=== PATIENT | male | born 1950 | race African-American/Black ===

== ENCOUNTER 2023-05-30 18:14 | Emergency (ER) | payer MEDICARE, MEDICAID ==
[~2023-05-30] VITALS: Ht 182.9 cm; Wt 84.0 kg
[~2023-05-30 18:14] MED LIST: AMLO-257 PO; BUSP15 PO; CELE50CA PO; CLON-598 PO; HYDR1TAB4 PO
[2023-05-30] MEDS ORDERED: HYDR25TA2 PO (18:19)
[2023-05-30] MEDS ORDERED: AMLO2.5T96 PO (18:20)
[2023-05-30 18:21] VITALS: TEMP 98.3
[2023-05-30] MEDS: ACETAMINOPHEN 500 MG TABLET PO ONE (18:59)
[2023-05-30 19:54] VITALS: BP 156/94; PULSE 86; RESP 18
== END 2023-05-30 20:51 | disposition still patient (30) ==
LOC: EMS 18:15
DX: I10 Essential (primary) hypertension (principal); F41.9 Anxiety disorder, unspecified; F32.A Depression, unspecified; Z86.73 Personal history of transient ischemic attack (TIA), and cerebral infarction without residual deficits
CPT/HCPCS: 70450; 71045; 93005; 99285

== ENCOUNTER 2023-07-21 12:44 | Inpatient (IN) | payer MEDICARE, MEDICAID ==
[~2023-07-21] VITALS: Ht 170.2 cm; Wt 82.5 kg
[~2023-07-21 12:44] MED LIST changes: -AMLO-257 PO; +AMLO2.5T96 PO; -BUSP15 PO; -CELE50CA PO; +CEPH-558 PO; -CLON-598 PO; -HYDR1TAB4 PO; +HYDR25TA2 PO; +PRED-554 PO; +TRAM50TA5 PO
[2023-07-21 13:24] LABS: BASOPHILS % (AUTO) 0.2 % (0.0-2.0); EOSINOPHILS % (AUTO) 0.1 % (1.0-6.0); HEMATOCRIT 37.3 % (41-53); HEMOGLOBIN 11.9 g/dL (13.5-17.5); LYMPHOCYTES # (AUTO) 0.9 K/uL (1.0-4.8); LYMPHOCYTES % (AUTO) 8.3 % (22.0-44.0); MEAN CORPUSCULAR HEMOGLOBIN 29.4 pg (26.0-34.0); MEAN CORPUSCULAR VOLUME 92 fL (80-100); MONOCYTES # (AUTO) 0.6 K/uL (0.1-1.0); MONOCYTES % (AUTO) 6.2 % (2.0-9.0); NEUTROPHILS # (AUTO) 8.9 K/uL (1.8-7.7); PLATELET COUNT (AUTO) 368 K/uL (150-450); RED BLOOD CELL COUNT(AUTO) 4.06 MIL/uL (4.50-5.90); RED CELL DISTRIBUTION WIDTH 15.4 % (11.5-14.5); WHITE BLOOD COUNT (AUTO) 10.4 K/uL (4.5-11.0)
[2023-07-21 13:27] LABS: NEUTROPHILS % (AUTO) 85.2 % (40.0-70.0)
[2023-07-21 13:48] LABS: ALBUMIN 3.2 g/dL (3.4-5.0); BILIRUBIN,TOTAL 0.4 mg/dL (0.1-1.0); CREATININE 2.36 mg/dL (0.60-1.30); POTASSIUM 5.4 mmol/L (3.5-5.1); TOTAL PROTEIN, SERUM 8.3 g/dL (6.4-8.2)
[2023-07-21 13:49] LABS: TROPONIN I-HIGH SENSITIVITY 12 ng/L (<76)
[2023-07-21] MEDS: ASPIRIN 325 MG TABLET PO ONE (14:38)
[2023-07-21] MEDS: LABETALOL HCL 5 MG/ML 20 ML VIAL IVP ONE ×2 (14:39→15:54)
[2023-07-21] MEDS: FUROSEMIDE 20 MG TABLET PO ONE (14:39)
[2023-07-21] MEDS ORDERED: DEXTROSE 50%-WATER 25 GM/50 ML SYRINGE IVP PRN (15:30)
[2023-07-21] MEDS ORDERED: HydrALAZINE HCL 20 MG/ML VIAL IVP PRN (15:30)
[2023-07-21] MEDS: MORPHINE SULFATE 4 MG/ML SYRINGE IVP ONE (15:32)
[2023-07-21] MEDS: KETOROLAC TROMETHAMINE 30 MG/ML VIAL IVP ONE (15:34)
[2023-07-21] MEDS: INSULIN REGULAR, HUMAN 100 UNITS/ML IVP ONE (15:37)
[2023-07-21] MEDS: ONDANSETRON HCL 4 MG/2 ML VIAL IVP ONE (15:43)
[2023-07-21] MEDS: NIFEdipine 30 MG ER TABLET PO SCH (15:45)
[2023-07-21] MEDS: SODIUM CHLORIDE 0.9% 1,000 ML IV ONE (15:55)
[2023-07-21] MEDS ORDERED: ONDANSETRON HCL 4 MG/2 ML VIAL IVP PRN (16:00)
[2023-07-21] MEDS ORDERED: MAGNESIUM HYDROXIDE SUSPENSION 30 ML UDCUP PO PRN (16:00)
[2023-07-21] MEDS ORDERED: BISACODYL 10 MG RECTAL RECTAL SUPPOSITORY PR PRN (16:00)
[2023-07-21 16:21] LABS: GLUCOMETER DEV NAME(LOC) ERT.5; GLUCOSE,POINT OF CARE 494 MG/DL (70-110)
[2023-07-21 16:50] LABS: TROPONIN I-HIGH SENSITIVITY 14 ng/L (<76)
[2023-07-21] MEDS: HEPARIN SODIUM,PORCINE 5,000 UNITS/ML VIAL SQ SCH (17:46)
[2023-07-21 18:21] LABS: TROPONIN I-HIGH SENSITIVITY 15 ng/L (<76)
[2023-07-21] MEDS: HydrALAZINE HCL 25 MG TABLET PO SCH (19:14)
[2023-07-21] MEDS: INSULIN GLARGINE,HUM.REC.ANLOG 100 UNITS/ML SQ ONE (19:55)
[2023-07-21 20:18] LABS: COVID AG,FIA SOURCE NASAL SWAB
[2023-07-21 20:43] LABS: SARS-COV2 (COVID) ANTIGEN,FIA Negative (Negative)
[2023-07-21 21:30] VITALS: BP 133/74; PULSE 82; RESP 18; TEMP 98.6
[2023-07-21] MEDS: METOPROLOL TARTRATE 25 MG TABLET PO SCH (21:45)
[2023-07-21] MEDS: ACETAMINOPHEN 325 MG TABLET PO PRN (21:59)
[2023-07-22] VITALS (8 sets, daily range): BP systolic 98–149; BP diastolic 54–77; PULSE 72–92; RESP 16–19; TEMP 97.5–100.2; O2SAT 100
[2023-07-22] MEDS: INSULIN LISPRO 100 UNITS/ML SQ ONE (05:48)
[2023-07-22 06:26] LABS: GLUCOMETER DEV NAME(LOC) 5N.1D; GLUCOSE,POINT OF CARE 503 MG/DL (70-110)
[2023-07-22 07:14] LABS: BASOPHILS % (AUTO) 0.4 % (0.0-2.0); EOSINOPHILS % (AUTO) 1.1 % (1.0-6.0); HEMATOCRIT 28.4 % (41-53); HEMOGLOBIN 9.4 g/dL (13.5-17.5); LYMPHOCYTES # (AUTO) 2.2 K/uL (1.0-4.8); LYMPHOCYTES % (AUTO) 28.2 % (22.0-44.0); MEAN CORPUSCULAR HEMOGLOBIN 30.2 pg (26.0-34.0); MEAN CORPUSCULAR HGB CONC 33.2 G/dL (31.0-37.0); MEAN CORPUSCULAR VOLUME 91 fL (80-100); MONOCYTES # (AUTO) 0.7 K/uL (0.1-1.0); MONOCYTES % (AUTO) 8.7 % (2.0-9.0); NEUTROPHILS # (AUTO) 4.8 K/uL (1.8-7.7); NEUTROPHILS % (AUTO) 61.6 % (40.0-70.0); PLATELET COUNT (AUTO) 258 K/uL (150-450); RED BLOOD CELL COUNT(AUTO) 3.13 MIL/uL (4.50-5.90); RED CELL DISTRIBUTION WIDTH 14.7 % (11.5-14.5); WHITE BLOOD COUNT (AUTO) 7.8 K/uL (4.5-11.0)
[2023-07-22 08:08] LABS: ALBUMIN 2.2 g/dL (3.4-5.0); BILIRUBIN,TOTAL 0.2 mg/dL (0.1-1.0); CALCIUM, TOTAL 7.5 mg/dL (8.8-10.5); CHOL/HDL RATIO 3.8 (4.2-7.3); CREATININE 3.01 mg/dL (0.60-1.30); POTASSIUM 4.4 mmol/L (3.5-5.1); TOTAL PROTEIN, SERUM 6.1 g/dL (6.4-8.2)
[2023-07-22] MEDS: ASPIRIN 81 MG CHEWABLE TABLET PO SCH (08:21)
[2023-07-22] MEDS: IPRATROPIUM BROMIDE 0.5 MG/2.5 ML NEB SOLUTION NEB PRN (08:39)
[2023-07-22] MEDS: ALBUTEROL SULFATE 2.5 MG/0.5 ML NEB SOLUTION NEB PRN (08:39)
[2023-07-22 08:53] LABS: THYROID STIMULATING HORMONE 1.22 uIU/mL (0.36-3.74)
[2023-07-22] MEDS ORDERED: HYDROCODONE/ACETAMINOPHEN 5-325 MG TABLET PO PRN (12:15)
[2023-07-22] MEDS: INSULIN GLARGINE,HUM.REC.ANLOG 100 UNITS/ML SQ SCH (12:31)
[2023-07-22] MEDS: INSULIN LISPRO 100 UNITS/ML SQ PRN (12:33)
[2023-07-22] MEDS: LIDOCAINE 5% TRANSDERMAL PATCH TD SCH (13:50)
[2023-07-22] MEDS ORDERED: INSULIN GLARGINE,HUM.REC.ANLOG 100 UNITS/ML SQ SCH (15:30)
[2023-07-22] MEDS: SODIUM CHLORIDE 0.9% 1,000 ML IV ONE (17:11)
[2023-07-22 17:30] LABS: GLUCOMETER DEV NAME(LOC) 5S.2C; GLUCOSE,POINT OF CARE 366 MG/DL (70-110)
[2023-07-22] MEDS ORDERED: ATOR40TA71 PO (17:45)
[2023-07-22] MEDS ORDERED: TAMS0.4C94 PO (17:45)
[2023-07-22] MEDS ORDERED: METF-81 PO (17:45)
[2023-07-22] MEDS ORDERED: GABA-1181 PO (17:45)
[2023-07-22] MEDS ORDERED: ASPI-1198 PO (17:45)
[2023-07-22] MEDS: ATORVASTATIN CALCIUM 40 MG TABLET PO SCH (20:56)
[2023-07-22] MEDS: TAMSULOSIN HCL 0.4 MG CAPSULE PO SCH (20:56)
[2023-07-22] MEDS: -LIDODERM PATCH NOTE- MISC SCH (20:59)
[2023-07-22 21:25] LABS: GLUCOMETER DEV NAME(LOC) 5N.1D; GLUCOSE,POINT OF CARE 322 MG/DL (70-110)
[2023-07-22 22:46] LABS: GLUCOMETER DEV NAME(LOC) 5N.2C; GLUCOSE,POINT OF CARE 193 MG/DL (70-110)
[2023-07-23 00:10] VITALS: BP 118/55; PULSE 76; RESP 16; TEMP 98.8
[2023-07-23 05:19] VITALS: BP 128/65; PULSE 76; RESP 16; TEMP 98
[2023-07-23 06:05] LABS: GLUCOMETER DEV NAME(LOC) 5S.2C; GLUCOSE,POINT OF CARE 77 MG/DL (70-110)
[2023-07-23 06:52] LABS: BASOPHILS % (AUTO) 0.3 % (0.0-2.0); EOSINOPHILS % (AUTO) 1.7 % (1.0-6.0); HEMATOCRIT 28.9 % (41-53); HEMOGLOBIN 9.8 g/dL (13.5-17.5); LYMPHOCYTES # (AUTO) 2.5 K/uL (1.0-4.8); LYMPHOCYTES % (AUTO) 29.1 % (22.0-44.0); MEAN CORPUSCULAR HEMOGLOBIN 30.2 pg (26.0-34.0); MEAN CORPUSCULAR HGB CONC 33.7 G/dL (31.0-37.0); MEAN CORPUSCULAR VOLUME 90 fL (80-100); MONOCYTES # (AUTO) 0.7 K/uL (0.1-1.0); MONOCYTES % (AUTO) 8.4 % (2.0-9.0); NEUTROPHILS # (AUTO) 5.2 K/uL (1.8-7.7); NEUTROPHILS % (AUTO) 60.5 % (40.0-70.0); PLATELET COUNT (AUTO) 278 K/uL (150-450); RED BLOOD CELL COUNT(AUTO) 3.23 MIL/uL (4.50-5.90); RED CELL DISTRIBUTION WIDTH 14.9 % (11.5-14.5); WHITE BLOOD COUNT (AUTO) 8.6 K/uL (4.5-11.0)
[2023-07-23 07:25] LABS: ALBUMIN 2.3 g/dL (3.4-5.0); BILIRUBIN,TOTAL 0.2 mg/dL (0.1-1.0); CALCIUM, TOTAL 7.7 mg/dL (8.8-10.5); CREATININE 4.08 mg/dL (0.60-1.30); POTASSIUM 4.3 mmol/L (3.5-5.1)
[2023-07-23 08:00] VITALS: BP 139/65; PULSE 90; RESP 20; TEMP 98.4
[2023-07-23] MEDS ORDERED: CARISOPRODOL 350 MG TABLET PO PRN (12:00)
[2023-07-23 13:11] LABS: GLUCOMETER DEV NAME(LOC) 5N.2C; GLUCOSE,POINT OF CARE 203 MG/DL (70-110)
[2023-07-23] MEDS: OxyCODONE HCL/ACETAMINOPHEN 10-325 MG TABLET PO PRN (13:28)
[2023-07-23 16:00] VITALS: BP 119/67; PULSE 79; RESP 18; TEMP 99.3
[2023-07-23 17:05] LABS: GLUCOMETER DEV NAME(LOC) 5N.1D; GLUCOSE,POINT OF CARE 240 MG/DL (70-110)
[2023-07-23 19:36] LABS: APPEARANCE,URINE CLEAR (CLEAR); BILIRUBIN,URINE NEGATIVE (NEGATIVE); COLOR,URINE LIGHT YELLOW (YELLOW); GLUCOSE, URINE (UA) >=1000 mg/dL (NEGATIVE); KETONES,URINE NEGATIVE (NEGATIVE); LEUKOCYTE ESTERASE ,URINE NEGATIVE (NEGATIVE); NITRATE,URINE NEGATIVE (NEGATIVE); OCCULT BLOOD,URINE NEGATIVE (NEGATIVE); PROTEIN,URINE NEGATIVE (NEGATIVE); SPECIFIC GRAVITIY, URINE 1.012 (1.003-1.030); UROBILINOGEN,URINE <=1.0 mg/dL (<=1.0)
[2023-07-23 20:01] LABS: BACTERIA,URINE None Seen /HPF (None Seen); RBC,URINE 0-2 /HPF (0-2); SQUAMOUS EPITHELIAL CELL,UR Rare /LPF (None Seen); WBC,URINE 0-2 /HPF (0-5)
[2023-07-23 20:51] VITALS: BP 141/78; PULSE 95; RESP 18; TEMP 98.1
[2023-07-23] MEDS: TAMSULOSIN HCL 0.4 MG CAPSULE PO SCH (20:56)
[2023-07-23 23:04] VITALS: BP 115/62; PULSE 87; RESP 18; TEMP 98.2
[2023-07-24 03:47] VITALS: BP 125/69; PULSE 91; RESP 18; TEMP 98.4
[2023-07-24 06:50] LABS: BASOPHILS % (AUTO) 0.3 % (0.0-2.0); EOSINOPHILS % (AUTO) 3.2 % (1.0-6.0); HEMATOCRIT 28.3 % (41-53); HEMOGLOBIN 9.4 g/dL (13.5-17.5); LYMPHOCYTES # (AUTO) 2.2 K/uL (1.0-4.8); LYMPHOCYTES % (AUTO) 25.2 % (22.0-44.0); MEAN CORPUSCULAR HEMOGLOBIN 29.8 pg (26.0-34.0); MEAN CORPUSCULAR HGB CONC 33.3 G/dL (31.0-37.0); MEAN CORPUSCULAR VOLUME 89 fL (80-100); MONOCYTES # (AUTO) 0.9 K/uL (0.1-1.0); MONOCYTES % (AUTO) 10.8 % (2.0-9.0); NEUTROPHILS # (AUTO) 5.3 K/uL (1.8-7.7); NEUTROPHILS % (AUTO) 60.5 % (40.0-70.0); PLATELET COUNT (AUTO) 268 K/uL (150-450); RED BLOOD CELL COUNT(AUTO) 3.17 MIL/uL (4.50-5.90); RED CELL DISTRIBUTION WIDTH 14.6 % (11.5-14.5); WHITE BLOOD COUNT (AUTO) 8.7 K/uL (4.5-11.0)
[2023-07-24 06:59] LABS: CALCIUM, TOTAL 7.8 mg/dL (8.8-10.5); CREATININE 1.5 mg/dL (0.60-1.30)
[2023-07-24 08:13] VITALS: BP 103/53; PULSE 91; RESP 20; TEMP 98
[2023-07-24 08:46] LABS: ALCOHOL, URINE DRUG SCREEN NEGATIVE (NEGATIVE); AMPHET/METH SCREEN,URINE NEGATIVE (NEGATIVE); BARBITURATE SCREEN, URINE NEGATIVE (NEGATIVE); BENZODIAZEPINES SCREEN,URINE NEGATIVE (NEGATIVE); CANNABINOID SCREEN,URINE NEGATIVE (NEGATIVE); COCAINE SCREEN,URINE NEGATIVE (NEGATIVE); METHADONE SCREEN, URINE NEGATIVE (NEGATIVE); OPIATE SCREEN,URINE POSITIVE (NEGATIVE); PHENCYCLIDINE SCREEN,URINE NEGATIVE (NEGATIVE); SODIUM,URINE RANDOM 42 mmol/l (20-110)
[2023-07-24 11:35] VITALS: BP 124/62; PULSE 82; RESP 20; TEMP 98.3
[2023-07-24 11:51] LABS: GLUCOMETER DEV NAME(LOC) 5N.2C; GLUCOSE,POINT OF CARE 129 MG/DL (70-110)
[2023-07-24 11:51] LABS: GLUCOMETER DEV NAME(LOC) 5N.1D; GLUCOSE,POINT OF CARE 178 MG/DL (70-110)
[2023-07-24 17:00] VITALS: BP 112/56; PULSE 98; RESP 20; TEMP 98.4
[2023-07-24 17:00] LABS: GLUCOMETER DEV NAME(LOC) 5S.1B; GLUCOSE,POINT OF CARE 249 MG/DL (70-110)
[2023-07-24 19:50] VITALS: BP 122/51; PULSE 103; RESP 20; TEMP 99.2
[2023-07-25 00:14] VITALS: BP 102/51; PULSE 103; RESP 22; TEMP 99.2
[2023-07-25 00:15] VITALS: BP 102/51; PULSE 103; RESP 20; TEMP 99.2
[2023-07-25 00:41] VITALS: BP 116/57; PULSE 83; RESP 20; TEMP 99.4
[2023-07-25 04:39] VITALS: BP 150/72; PULSE 96; RESP 20; TEMP 98.8
[2023-07-25 06:01] LABS: GLUCOMETER DEV NAME(LOC) 5N.1D; GLUCOSE,POINT OF CARE 302 MG/DL (70-110)
[2023-07-25 08:00] VITALS: BP 121/83; PULSE 19; RESP 19; TEMP 98.4
[2023-07-25 08:06] LABS: BASOPHILS % (AUTO) 0.6 % (0.0-2.0); EOSINOPHILS % (AUTO) 3.3 % (1.0-6.0); HEMATOCRIT 28.3 % (41-53); HEMOGLOBIN 9.4 g/dL (13.5-17.5); LYMPHOCYTES # (AUTO) 1.9 K/uL (1.0-4.8); LYMPHOCYTES % (AUTO) 21.4 % (22.0-44.0); MEAN CORPUSCULAR HEMOGLOBIN 29.9 pg (26.0-34.0); MEAN CORPUSCULAR HGB CONC 33.3 G/dL (31.0-37.0); MEAN CORPUSCULAR VOLUME 90 fL (80-100); MONOCYTES % (AUTO) 11.5 % (2.0-9.0); NEUTROPHILS # (AUTO) 5.7 K/uL (1.8-7.7); NEUTROPHILS % (AUTO) 63.2 % (40.0-70.0); PLATELET COUNT (AUTO) 254 K/uL (150-450); RED BLOOD CELL COUNT(AUTO) 3.15 MIL/uL (4.50-5.90); RED CELL DISTRIBUTION WIDTH 15.3 % (11.5-14.5)
[2023-07-25 08:25] LABS: ANION GAP 10 mmol/L (8-16); CALCIUM, TOTAL 7.8 mg/dL (8.8-10.5); CARBON DIOXIDE 23 mmol/L (22-29); CHLORIDE 105 mmol/L (98-107); CREATININE 1.02 mg/dL (0.60-1.30); FERRITIN 280 ng/mL (26-388); GLOMERULAR FILTR. RATE CALC > 60 mL/min (>60); GLUCOSE,RANDOM 274 mg/dL (70-110); POTASSIUM 4.6 mmol/L (3.5-5.1); SODIUM SERUM 138 mmol/L (136-145); UREA NITROGEN, BLOOD 31 mg/dL (7-18)
[2023-07-25 08:31] LABS: % IRON SATURATION 15.6 % (30-44)
[2023-07-25 14:21] LABS: GLUCOMETER DEV NAME(LOC) 5N.2C; GLUCOSE,POINT OF CARE 302 MG/DL (70-110)
[2023-07-25 14:21] LABS: GLUCOMETER DEV NAME(LOC) 5S.1B; GLUCOSE,POINT OF CARE 216 MG/DL (70-110)
== END 2023-07-25 11:00 | DRG 199 ==
LOC: EMS 12:44 → 5S 20:05
PROVIDERS: ADMIT Internal Medicine; ATTEND Internal Medicine
DX: I16.0 Hypertensive urgency (principal); N17.9 Acute kidney failure, unspecified; D63.1 Anemia in chronic kidney disease; E11.65 Type 2 diabetes mellitus with hyperglycemia; E11.22 Type 2 diabetes mellitus with diabetic chronic kidney disease; E87.5 Hyperkalemia; N18.9 Chronic kidney disease, unspecified; I12.9 Hypertensive chronic kidney disease with stage 1 through stage 4 chronic kidney disease, or unspecified chronic kidney disease; Z20.822 Contact with and (suspected) exposure to COVID-19; N40.1 Benign prostatic hyperplasia with lower urinary tract symptoms; E61.1 Iron deficiency; G89.4 Chronic pain syndrome; N13.30 Unspecified hydronephrosis; F11.20 Opioid dependence, uncomplicated; F32.A Depression, unspecified; F41.9 Anxiety disorder, unspecified; R33.8 Other retention of urine; R79.89 Other specified abnormal findings of blood chemistry; Z91.148 Patient's other noncompliance with medication regimen for other reason; Z79.899 Other long term (current) drug therapy; Z86.73 Personal history of transient ischemic attack (TIA), and cerebral infarction without residual deficits; Z79.82 Long term (current) use of aspirin; Z79.4 Long term (current) use of insulin; Z91.018 Allergy to other foods
CPT/HCPCS: 71045; 76770; 80048; 80053; 80061; 80307; 81001; 82570; 82728; 82962; 83036; 83540; 83550; 83690; 83880; 84300; 84443; 84484; 85025; 93005; 93306; 94640; 97162; 99291; G0480; J0360; J1644; J1815; J1885; J2270; J2405; J3490; J7030; 36415-L1; 36415-TC; J7613

== ENCOUNTER 2023-08-05 21:27 | Emergency (ER) | payer MEDICARE, MEDICAID ==
[~2023-08-05] VITALS: Ht 182.9 cm; Wt 77.3 kg
[~2023-08-05 21:27] MED LIST changes: +ASPI-1198 PO; +ATOR40TA71 PO; -CEPH-558 PO; +GABA-1181 PO; +METF-81 PO; -PRED-554 PO; +TAMS0.4C94 PO; -TRAM50TA5 PO
[2023-08-05 21:57] VITALS: TEMP 98.3
[2023-08-05 22:24] LABS: BASOPHILS % (AUTO) 0.7 % (0.0-2.0); EOSINOPHILS % (AUTO) 10.7 % (1.0-6.0); HEMATOCRIT 31.6 % (41-53); HEMOGLOBIN 10.4 g/dL (13.5-17.5); LYMPHOCYTES # (AUTO) 1.9 K/uL (1.0-4.8); LYMPHOCYTES % (AUTO) 20.3 % (22.0-44.0); MEAN CORPUSCULAR HGB CONC 32.9 G/dL (31.0-37.0); MEAN CORPUSCULAR VOLUME 91 fL (80-100); MONOCYTES # (AUTO) 0.6 K/uL (0.1-1.0); MONOCYTES % (AUTO) 6.7 % (2.0-9.0); NEUTROPHILS # (AUTO) 5.9 K/uL (1.8-7.7); NEUTROPHILS % (AUTO) 61.6 % (40.0-70.0); PLATELET COUNT (AUTO) 475 K/uL (150-450); RED BLOOD CELL COUNT(AUTO) 3.47 MIL/uL (4.50-5.90); WHITE BLOOD COUNT (AUTO) 9.5 K/uL (4.5-11.0)
[2023-08-05 22:36] LABS: LIPASE 32 U/L (16-77)
[2023-08-05 22:37] LABS: ANION GAP 8 mmol/L (8-16); CALCIUM, TOTAL 9.4 mg/dL (8.8-10.5); CARBON DIOXIDE 28 mmol/L (22-29); CHLORIDE 101 mmol/L (98-107); CREATININE 1.02 mg/dL (0.60-1.30); GLOMERULAR FILTR. RATE CALC > 60 mL/min (>60); GLUCOSE,RANDOM 332 mg/dL (70-110); POTASSIUM 4.2 mmol/L (3.5-5.1); SODIUM SERUM 137 mmol/L (136-145); UREA NITROGEN, BLOOD 24 mg/dL (7-18)
[2023-08-05 22:42] LABS: ALANINE AMINOTRANSFERASE 70 U/L (12-78); ALBUMIN 3.4 g/dL (3.4-5.0); ALKALINE PHOSPHATASE 167 U/L (46-116); ASPARTATE AMINOTRANSFERASE 42 U/L (15-37); BILIRUBIN,TOTAL 0.2 mg/dL (0.1-1.0); TOTAL PROTEIN, SERUM 8.1 g/dL (6.4-8.2)
[2023-08-05] MEDS: SODIUM CHLORIDE 0.9% 1,000 ML IV ONE (22:43)
[2023-08-05] MEDS: ONDANSETRON HCL 4 MG/2 ML VIAL IVP ONE (22:44)
[2023-08-05 22:45] LABS: LACTIC ACID 1.5 mmol/L (0.4-2.0); TROPONIN I-HIGH SENSITIVITY 8 ng/L (<76)
[2023-08-05] MEDS: KETOROLAC TROMETHAMINE 30 MG/ML VIAL IVP ONE (22:45)
[2023-08-05] MEDS: ACETAMINOPHEN 500 MG TABLET PO ONE (22:45)
[2023-08-05 22:47] LABS: B-TYPE NATRIURETIC PEPTIDE 16 pg/mL (0-100)
[2023-08-05] MEDS: MetFORMIN HCL 500 MG TABLET PO ONE (23:34)
[2023-08-05] MEDS: INSULIN REGULAR, HUMAN 100 UNITS/ML IVP ONE (23:54)
[2023-08-06 01:13] LABS: APPEARANCE,URINE HAZY (CLEAR); BILIRUBIN,URINE NEGATIVE (NEGATIVE); COLOR,URINE YELLOW (YELLOW); GLUCOSE, URINE (UA) >=1000 mg/dL (NEGATIVE); KETONES,URINE NEGATIVE (NEGATIVE); LEUKOCYTE ESTERASE ,URINE LARGE (NEGATIVE); NITRATE,URINE NEGATIVE (NEGATIVE); OCCULT BLOOD,URINE NEGATIVE (NEGATIVE); PROTEIN,URINE TRACE mg/dL (NEGATIVE); SPECIFIC GRAVITIY, URINE 1.017 (1.003-1.030); UROBILINOGEN,URINE <=1.0 mg/dL (<=1.0)
[2023-08-06] MEDS ORDERED: CEPH-558 PO (01:17)
[2023-08-06] MEDS ORDERED: METF-1211 PO (01:17)
[2023-08-06] MEDS ORDERED: TAMS0.4C94 PO (01:17)
[2023-08-06 01:20] LABS: BACTERIA,URINE Many /HPF (None Seen); RBC,URINE None Seen /HPF (0-2); SQUAMOUS EPITHELIAL CELL,UR None Seen /LPF (None Seen); WBC,URINE 26-50 /HPF (0-5)
[2023-08-06 01:41] LABS: GLUCOMETER DEV NAME(LOC) ER.6; GLUCOSE,POINT OF CARE 295 MG/DL (70-110)
[2023-08-06 01:41] LABS: GLUCOMETER DEV NAME(LOC) ER.6; GLUCOSE,POINT OF CARE 131 MG/DL (70-110)
[2023-08-06 04:50] VITALS: BP 150/81; PULSE 87; RESP 15
== END 2023-08-06 07:24 | disposition home or self-care (01) ==
LOC: EMS 21:40
DX: R53.1 Weakness (principal); E11.65 Type 2 diabetes mellitus with hyperglycemia; R73.9 Hyperglycemia, unspecified; N40.1 Benign prostatic hyperplasia with lower urinary tract symptoms; I10 Essential (primary) hypertension; Z91.118 Patient's noncompliance with dietary regimen for other reason; Z91.014 Allergy to mammalian meats; Z79.899 Other long term (current) drug therapy
CPT/HCPCS: 99285; 96374; 96375; 71045; 96361; 80053; 81001; 82962; 83605; 83690; 83880; 84484; 85025; 36415; 87086; 87186; 93005; 51702; J1815; J1885; J2405; J7030

== ENCOUNTER 2023-08-16 00:48 | Emergency (ER) | payer MEDICARE, MEDICAID ==
[~2023-08-16] VITALS: Ht 182.9 cm; Wt 81.8 kg
[~2023-08-16 00:48] MED LIST changes: +CEPH-558 PO; +METF-1211 PO
[2023-08-16 01:27] VITALS: BP 160/70; PULSE 93; RESP 16; TEMP 98
[2023-08-16] MEDS: CEPHALEXIN MONOHYDRATE 500 MG CAPSULE PO ONE (02:07)
[2023-08-16 02:18] LABS: BASOPHILS % (AUTO) 0.7 % (0.0-2.0); EOSINOPHILS % (AUTO) 3.3 % (1.0-6.0); HEMATOCRIT 34.2 % (41-53); HEMOGLOBIN 11.3 g/dL (13.5-17.5); LYMPHOCYTES # (AUTO) 2.7 K/uL (1.0-4.8); LYMPHOCYTES % (AUTO) 33.1 % (22.0-44.0); MEAN CORPUSCULAR HEMOGLOBIN 29.9 pg (26.0-34.0); MEAN CORPUSCULAR VOLUME 91 fL (80-100); MONOCYTES # (AUTO) 0.8 K/uL (0.1-1.0); MONOCYTES % (AUTO) 9.2 % (2.0-9.0); NEUTROPHILS # (AUTO) 4.4 K/uL (1.8-7.7); NEUTROPHILS % (AUTO) 53.7 % (40.0-70.0); PLATELET COUNT (AUTO) 363 K/uL (150-450); RED BLOOD CELL COUNT(AUTO) 3.76 MIL/uL (4.50-5.90); RED CELL DISTRIBUTION WIDTH 16.3 % (11.5-14.5); WHITE BLOOD COUNT (AUTO) 8.3 K/uL (4.5-11.0)
[2023-08-16 02:29] LABS: ANION GAP 5 mmol/L (8-16); CALCIUM, TOTAL 9.3 mg/dL (8.8-10.5); CARBON DIOXIDE 28 mmol/L (22-29); CHLORIDE 102 mmol/L (98-107); CREATININE 1.05 mg/dL (0.60-1.30); GLOMERULAR FILTR. RATE CALC > 60 mL/min (>60); GLUCOSE,RANDOM 272 mg/dL (70-110); POTASSIUM 4.3 mmol/L (3.5-5.1); SODIUM SERUM 135 mmol/L (136-145); UREA NITROGEN, BLOOD 20 mg/dL (7-18)
[2023-08-16 02:35] LABS: ALANINE AMINOTRANSFERASE 30 U/L (12-78); ALBUMIN 3.1 g/dL (3.4-5.0); ALKALINE PHOSPHATASE 121 U/L (46-116); ASPARTATE AMINOTRANSFERASE 18 U/L (15-37); BILIRUBIN,TOTAL 0.2 mg/dL (0.1-1.0); TOTAL PROTEIN, SERUM 7.4 g/dL (6.4-8.2)
[2023-08-16] MEDS ORDERED: CEPH-558 PO (03:22)
[2023-08-16 04:15] LABS: APPEARANCE,URINE CLEAR (CLEAR); BILIRUBIN,URINE NEGATIVE (NEGATIVE); COLOR,URINE YELLOW (YELLOW); GLUCOSE, URINE (UA) 300-500 mg/dL (NEGATIVE); KETONES,URINE NEGATIVE (NEGATIVE); LEUKOCYTE ESTERASE ,URINE MODERATE (NEGATIVE); NITRATE,URINE NEGATIVE (NEGATIVE); OCCULT BLOOD,URINE SMALL (NEGATIVE); PROTEIN,URINE 100-200,SEE CONFIRM mg/dL (NEGATIVE); SPECIFIC GRAVITIY, URINE 1.023 (1.003-1.030)
[2023-08-16 04:26] LABS: BACTERIA,URINE Moderate /HPF (None Seen); SQUAMOUS EPITHELIAL CELL,UR Few /LPF (None Seen); SULFOSALICYLIC ACID,URINE 2+ (Negative)
== END 2023-08-16 04:12 | disposition home or self-care (01) ==
LOC: EMS 00:50
DX: T83.018A Breakdown (mechanical) of other urinary catheter, initial encounter (principal); N39.0 Urinary tract infection, site not specified; F41.9 Anxiety disorder, unspecified; M19.90 Unspecified osteoarthritis, unspecified site; F32.A Depression, unspecified; I10 Essential (primary) hypertension; Z98.890 Other specified postprocedural states
CPT/HCPCS: 80053; 81001; 81002; 82962; 85025; 87086; 87186; 99283